=== PATIENT | female | born 1950 | race Caucasian/White ===

== ENCOUNTER 2016-12-18 17:57 | Emergency (ER) | payer OTHER ==
[2016-12-18 18:14] VITALS: BP 158/97; PULSE 75; TEMP 98.2; BMI 26.5
--- NOTE | 2016-12-18 19:07 | PDOC ---
History of Present Illness - General Chief Complaint: Eye Problem Stated Complaint: EYE PROBLEM, HEADACHE/seeing black/red Time Seen by Provider: 12/18/16 19:06 - History of Present Illness Initial Comments: 66 year old female with PMH of diabetes, HTN, and amaurousis fugax presenting with visual symptoms of floating black dots, occasional bright lights, and some slight episodes of eye pain. This all started three days ago without inciting event and without any other symptoms. She describes the visual symptoms as black dots that started in her right eye that then went to her left eye. She also noticed some bright flashes in her left eye. The black dots today turned more into areas of wavy darkness. She also has had a headache earlier today. She denies nausea, vomiting, chest pain, palpitations, or other sick symptoms. Her Opthomolgist is Dr. Lugo. 12/18/16 20:35 Past History - Past Medical History Allergies/Adverse Reactions: Allergies Allergy/AdvReac Type Severity Reaction Status Date / Time Penicillins Allergy Verified 12/18/16 18:13 CVA: (eye stroke 2013) Diabetes: Yes HTN: Yes Other medical history: eye stroke - Psycho/Social/Smoking Cessation Hx Suicidal Ideation: No Smoking History: Never smoked Information on smoking cessation initiated: No Hx Alcohol Use: No Drug/Substance Use Hx: No Substance Use Type: None Review of Systems - Review of Systems Constitutional: No: Chills, Diaphoresis, Fever HEENTM: Yes: Eye Pain, Recent change in vision, Double Vision. No: Blurred Vision Respiratory: No: Cough, Orthopnea, Shortness of Breath Cardiac (ROS): No: Chest Pain, Edema, Irregular Heart Rate ABD/GI: No: Constipated, Diarrhea, Nausea, Poor Appetite : No: Burning, Discharge, Incontinence Neurological: Yes: Headache *Physical Exam - Vital Signs Last Vital Signs Temp Pulse Resp BP Pulse Ox 98.2 F 75 18 158/97 97 12/18/16 18:11 12/18/16 18:11 12/18/16 18:11 12/18/16 18:11 12/18/16 18:11 - Physical Exam General Appearance: Yes: Nourished, Appropriately Dressed. No: Apparent Distress HEENT: positive: MARION, Normal ENT Inspection, Other (20/50 vision in both eyes. Peripheral vision intact bilaterally. Abnormal vitreous findings concerning for retinal detachement in th eright eye with seemingly normal exam in the right eye. ). negative: Scleral Icterus (R), Scleral Icterus (L) Neck: positive: Trachea midline. negative: Tender Respiratory/Chest: positive: Lungs Clear, Normal Breath Sounds. negative: Chest Tender, Respiratory Distress, Accessory Muscle Use, Labored Respiration, Rales, Rhonchi, Stridor, Wheezing Cardiovascular: positive: Regular Rhythm, Regular Rate, S1, S2. negative: Edema , Murmur Medical Decision Making - Medical Decision Making 66 year old female with previous Amaurosis Fugax presenting with symptoms concerning for retinal detachment. US and ophthalmoscopic exam potentially corroborating this finding. Dr. Lugo was called twice then Dr. Hurtado who responded quite promptly and looked at the US image via text message and believes that the symptomatology and images corroborate a diagnosis of posterior vitreal detachment. He would liek the patient to keep the head of bed at 90 degrees. 12/18/16 20:57 *DC/Admit/Observation/Transfer Diagnosis at time of Disposition: Posterior vitreous detachment - Discharge Dispostion Disposition: HOME Condition at time of disposition: Stable - Referrals Referrals: Jeremy Tate MD, MD [Primary Care Provider] - Ernestina Lugo MD [Staff Physician] - - Patient Instructions Additional Instructions: You were seen for eye pain. We believe that you have detached a portion of the back of your eye. Please keep the head of your bead elevated and do not over exert yourself. Please do not bend over. See your manager hospice, Dr. Lugo on Wednesday or you can schedule an appointment for Wednesday with Dr. Knowles ([phone]). Please return if you have worsening pain in your eye. - Attestations Physician Attestion: I, Dr. Tanika Davenport, attest that this document has been prepared under my direction and personally reviewed by me in its entirety. I further attest, that it accurately reflects all work, treatment, procedures and medical decision -making performed by me. 12/18/16 21:25
--- NOTE | 2016-12-18 20:05 | PDOC ---
Attending Attestation - Resident Resident Name: Tanika Davenport - ED Attending Attestation I have performed the following: I have examined & evaluated the patient, The case was reviewed & discussed with the resident, I agree w/resident's findings & plan, Exceptions are as noted - HPI HPI: 12/18/16 20:00 66 year old female with history of Amaurosis fugax (R eye) with chronic diplopia , HTN, DM, HLD presents with left eye floaters since yesterday. The patient states that yesterday, she started noting some increasingly floaters in the left eye. States that she sees the floaters moving around when she looks around. Denies any changes in visual acuity. States she occasionally wears glasses. Denies contact lenses. Reports occasional flashing lights in the left lateral eye. - Physicial Exam PE: 12/18/16 20:04 GENERAL: Awake, alert, and fully oriented, in no acute distress. HEAD: No signs of trauma EYES: PERRLA, EOMI, sclera anicteric, conjunctiva clear. Pupils reactive and equal. OU 20/50. All visual bonilla intact. ENT: Auricles normal inspection, hearing grossly normal, nares patent, oropharynx clear without exudates. NECK: Normal ROM, supple, no lymphadenopathy, JVD, or masses LUNGS: Breath sounds equal, clear to auscultation bilaterally. No wheezes, and no crackles HEART: Regular rate and rhythm, normal S1 and S2, no murmurs, rubs or gallops ABDOMEN: Soft, nontender, normoactive bowel sounds. No guarding, no rebound. No masses EXTREMITIES: Normal range of motion, no edema. No clubbing or cyanosis. No cords, erythema, or tenderness NEUROLOGICAL: Cranial nerves II through XII grossly intact. Normal speech, normal gait SKIN: Warm, Dry, normal turgor, no rashes or lesions noted. - Medical Decision Making 12/18/16 20:04 Will need to r/o retinal detachment, Amaurosis fugax, vitreous hemorrhage. Will perform bedside ocular ultrasound. Reassess. 12/18/16 21:06 Bedside ultrasound shows some hyperechoic findings. Dr. Davenport had discussed case and shared ultrasound images with Dr. Lockhart ( optho) States that this appears to be posterior vitreal detachment. Head of bed elevation, no straining, and follow up with optho as an outpatient urgently.
== END 2016-12-18 21:46 | disposition home or self-care (01) ==
LOC: JER 17:57
DX: H43.812 Vitreous degeneration, left eye (principal)
CPT/HCPCS: 99282-25